=== PATIENT | female | born 1945 | race Caucasian/White ===

== ENCOUNTER → 2017-01-19 | Day surgery (SDC) | payer BC ==
[2017-01-14 14:53] LABS: Basophils # (auto) 0 uL; Basophils % (auto) 0.5 % (0.0-2.0); CONDITION Y; Eosinophils # (auto) 0.1 uL; Eosinophils % (auto) 1.4 % (0.0-7.0); Hematocrit 44.9 % (36.0-46.0); Lymphocytes % (auto) 24.4 % (10.0-50.0); Mean Corpuscular Hemoglobin 30.2 pg (28.0-32.0); Mean Corpuscular Hgb Conc. 33.4 g/dL (32.0-36.0); Mean Corpuscular Volume 90.3 fL (80.0-100.0); Mean Platelet Volume 7.9 fL (7.4-10.4); Monocytes # (auto) 0.4 uL; Monocytes % (auto) 5.3 % (0.0-12.0); Neutrophils # (auto) 5.5 uL; Neutrophils % (auto) 68.4 % (37.0-80.0); Platelet Count (auto) 278 10^3/uL (140-450); Red Cell Distribution Width 14.7 % (11.6-16.0); White Blood Cell 8.1 10^3/uL (4.4-10.8)
[2017-01-14 15:04] LABS: Urine Bilirubin Negative (Negative); Urine Blood Negative /uL (Negative); Urine Color Yellow (Yellow); Urine Glucose Normal (Normal); Urine Ketone Negative (Negative); Urine Mucus FEW (None Seen); Urine Nitrite Negative (Negative); Urine RBC 1 /hpf (0 - 4); Urine Urobilinogen Normal (Negative)
[2017-01-14 15:13] LABS: INR 0.94 (0.9-1.15); Partial Thromboplastin Time 24.5 sec (22.64-33.71); Prothrombin Time 10.2 sec (9.37-12.3)
[2017-01-14 15:14] LABS: Albumin 3.9 g/dL (3.4-5.0); BUN/Creatinine Ratio 25.3; Bilirubin, Total 0.4 mg/dL (0.2-1.0); Calcium 8.8 mg/dL (8.5-10.1); Potassium 4.3 mmol/L (3.5-5.1); Total Protein 7.2 g/dL (6.4-8.2)
[~2017-01-19] VITALS: Ht 160 cm; Wt 67.1 kg
[~2017-01-19] MED LIST: AZEL137S7; BUPIVACAINE 0.75% INJ 10ML MPV SDV IJ ONE; FEXO-42 PO; MIDAZOLAM HCL 1MG/1ML-2 ML VIAL ONE; ONDANSETRON HCL 4 MG/2 ML VIAL ONE; PANT40T PO; PROPOFOL 10 MG/ML 20 ML IV ONE; ROSU10TA16 PO; SODIUM CHLORIDE LOCK 20 ML ONE; ZOLP10TA PO; ceFAZolin 1GM/50ML D5W 50 ML IV ONE; fentaNYL CITRATE 100 MCG/2 ML VL ONE
[2017-01-19 14:04] VITALS: BP 139/75
== END ==
LOC: SUR 09:12
PROVIDERS: ATTEND Podiatrist Foot & Ankle Surgery
DX: M20.5X2 Other deformities of toe(s) (acquired), left foot (principal); Z88.1 Allergy status to other antibiotic agents; Z90.710 Acquired absence of both cervix and uterus
CPT/HCPCS: 28285; 36415; 80053; 81001; 85025; 85610; 85730; J0690; J2250; J2405; J2704; J3010; J3490